=== PATIENT | female | born 1980 | race Caucasian/White ===

== ENCOUNTER → 2024-10-07 | Outpatient (CLI) | payer SELFPAY ==
--- NOTE | 2024-10-07 13:40 | CT_ITS ---
PROCEDURE: LIMITED CHEST CT CARDIAC ONLY REASON FOR EXAM: FAMILY HX OF PREMATURE CAH, HLD Evaluation of the extra cardiac anatomy. The cardiac portion of the study was evaluated and interpreted by the balancer scale. TECHNIQUE: Supine chest CT without contrast, high resolution CT (HRCT) protocol. Coronal and Sagittal reconstruction series were provided. One or more dose reduction techniques were used (e.g., Automated exposure control, adjustment of the mA and/or kV according to patient size, use of iterative reconstruction technique). COMPARISON: No relevant prior. FINDINGS: Hardware: None. Lymph nodes: Unremarkable. Heart and Vasculature: Unremarkable. Coronary Artery Calcifications: Minimal. Lungs and Airways: Unremarkable. Pleura: Unremarkable. Upper Abdomen: Unremarkable. Bones: Unremarkable. CT/Limited Chest CT Cardiac Only IMPRESSION: No abnormality seen in the image extra cardiac anatomic structures. Reading Location: [place] [id number]
--- NOTE | 2024-10-07 17:04 | CA.SCORE ---
Calcium Scoring Date of Study:: 10/07/24 Coronary Calcium Scoring: High-resolution Computed Tomographic imaging of the chest was performed on [10/07/24 ], with particular attention paid to the coronary arteries. Images from the examination were analyzed for the presence and extent of coronary artery calcification , using coronary calcium quantification software. The patient tolerated the procedure well and there were no complications. The results of the coronary calcification analysis are provided below. Findings Coronary Artery Left Main (LM): 0 Left Anterior Descending (LAD): 0 Left Circumflex (LCX): 0 Right Coronary Artery (RCA): 8 Total Agatston Score: 8 Percentile Rankin-90% Calcium Scoring Interpretation: Different methods to categorize the overall amount of coronary plaque. Overall amount CAC SIS Visual of coronary plaque P1 Mild -100 <2 1-2 vessels with mild amount of plaque P2 Moderate 101-300 3-4 1-2 vessels with moderate amount, 3 vessels with mild amount of plaque P3 Severe 301-999 5-7 3 vessels with moderate amount, 1 vessel with severe amount of plaque P4 Extensive >1000 >8 2-3 vessels with severe amount of plaque Calcium Score: Mild: 1-2 vessels w/mild amount of plaque Conclusion: Mild focal single-vessel atherosclerotic plaquing noted
== END | disposition home or self-care (01) ==
LOC: CT 13:39
PROVIDERS: PCP Family Medicine; Referring Provider Internal Medicine Cardiovascular Disease; Visit Provider Internal Medicine Cardiovascular Disease
DX: E78.5 Hyperlipidemia, unspecified (principal); Z82.49 Family history of ischemic heart disease and other diseases of the circulatory system
CPT/HCPCS: 75571; 76380